=== PATIENT | female | born 1990 | race African-American/Black ===

== ENCOUNTER 2018-01-25 06:39 | Outpatient (CLI) | payer OTHER ==
[~2018-01-25] VITALS: Ht 175.3 cm; Wt 60.0 kg
[2018-01-25 07:17] VITALS: BP 131/68; PULSE 67; TEMP 97.2
[2018-01-25] MEDS ORDERED: AMITRIPTYLINE H25 M1 PO (08:08)
[2018-01-25] MEDS ORDERED: VOLTAREN GEL 1%1 TU TP (08:08)
[2018-01-25] MEDS ORDERED: IMITREX 25MG TA25 MG PO (08:09)
[2018-01-25] MEDS ORDERED: BENGAY COLD THERAP5% TOP (08:09)
[2018-01-25] MEDS ORDERED: MAG-OX 400400 MG/TAB PO (08:10)
[2018-01-25] MEDS ORDERED: PRENATAL1 TA7 PO (08:10)
[2018-01-25] MEDS ORDERED: RIBOFLAVIN100 MG PO (08:11)
[2018-01-25] MEDS ORDERED: ZANAFLEX 4MG TAB4 MG PO (08:14)
[2018-01-25] MEDS ORDERED: PRINIVIL10 MG PO (08:15)
[2018-01-25] MEDS ORDERED: CELEBREX 200MG200 MG PO (08:15)
[2018-01-25 09:50] VITALS: BP 117/76; PULSE 73
[2018-01-25 10:05] VITALS: BP 117/74; PULSE 82
[2018-01-25 10:20] VITALS: BP 123/81; PULSE 77
[2018-01-25 10:24] LABS: BASO % 0.3 % (0.0-2.0); EOS % 0.6 % (0-4.0); GRAN # 1.4 (1.4-6.5); GRAN % 40.4 % (42.2-75.2); LYMPH # 1.7 (1.2-3.4); LYMPH % 48.4 % (20.0-51.0); MEAN CELL VOLUME 87 fl (80.0-100.0); MEAN CORPUSCULAR HEMOGLOBIN 28 pg (27.0-31.0); MEAN CORPUSCULAR HGB CONC 33 g/dl (33.0-37.0); MEAN PLATELET VOLUME 10.1 fl (7.4-10.4); MONO # 0.4 (0.1-0.6); MONO % 10.3 % (1.7-9.3); PLATELET COUNT 317 K/mm3 (130-400); RED BLOOD COUNT 4.62 M/mm3 (4.10-5.30); REDCELL DISTRIBUTION WIDTH-CV 13.4 % (11.5-14.5)
[2018-01-25 11:50] VITALS: BP 115/72; PULSE 91
== END 2018-01-25 12:00 | disposition home or self-care (01) ==
LOC: SDCO 06:39
PROVIDERS: Pathology Anatomic Pathology & Clinical Pathology
DX: D72.819 Decreased white blood cell count, unspecified (principal)
CPT/HCPCS: J2250; J2405; J2704; J3010; J7120